=== PATIENT | male | born 1990 | race Hispanic/Latino ===

== ENCOUNTER 2018-12-06 05:56 | Emergency (ER) | payer SELFPAY ==
[2018-12-06 06:19] VITALS: TEMP 98.1
[2018-12-06] MEDS ORDERED: Sodium Chloride 0.9% 1,000 ML IV ONE (06:53)
[2018-12-06 07:10] LABS: BASO # 0.1 K/uL (0.0-0.2); BASO % 0.3 % (0.0-2.0); EOS % 0.3 % (0.0-4.0); HEMOGLOBIN 17.1 g/dL (12.0-18.0); LYMPH # 0.3 K/uL (1.0-4.3); LYMPH % 1.9 % (20.0-40.0); MEAN CELL VOLUME 90.8 fL (80.0-94.0); MEAN CORPUSCULAR HEMOGLOBIN 29.7 pg (27.0-31.0); MEAN CORPUSCULAR HGB CONC 32.7 g/dL (33.0-37.0); MEAN PLATELET VOLUME 9.5 fL (7.2-11.7); MONO # 0.7 K/uL (0.0-0.8); MONO % 4.5 % (0.0-10.0); NEUT # 14.6 K/uL (1.8-7.0); PLATELET COUNT 275 K/uL (130-400); RBC 5.74 Mil/uL (4.40-5.90); RED CELL DISTRIBUTION WIDTH 13.7 % (11.5-14.5); WHITE BLOOD COUNT 15.7 K/uL (4.8-10.8)
[2018-12-06 07:31] LABS: ALB/GLOB RATIO 1.4 (1.0-2.1); ALBUMIN 5.2 g/dL (3.5-5.0); ALT/SGPT 54 U/L (21-72); AST/SGOT 47 U/L (17-59); BLOOD UREA NITROGEN 16 mg/dL (9-20); CALCIUM 9.8 mg/dl (8.6-10.4); GFR NON-AFRICAN AMERICAN > 60; LIPASE 74 U/L (23-300)
--- NOTE | 2018-12-06 07:49 | C.PDOC ---
History Of Present Illness 28 y/o male presents to the ER complaining of nausea, vomiting, and diarrhea which has been present for the past 1 day. Patient states that he had multiple episodes of diarrhea.Denies having fever, chills, CP, SOB, and abdominal pain. Of note, patient states that he has history of brain cyst with craniotomy and seizure disorder. Time Seen by Provider: 12/06/18 07:14 Chief Complaint (Nursing): GI Problem History Per: Patient History/Exam Limitations: no limitations Onset/Duration Of Symptoms: Days Current Symptoms Are (Timing): Still Present Severity: Moderate Quality Of Discomfort: Cramping Recent travel outside of the [place]: [place] Past Medical History Reviewed: Historical Data, Nursing Documentation, Vital Signs Vital Signs: Last Vital Signs Temp 98.1 F 12/06/18 06:01 Pulse 106 H 12/06/18 06:01 Resp 20 12/06/18 06:01 BP 120/87 12/06/18 06:01 Pulse Ox 100 12/06/18 06:01 - Medical History PMH: No Chronic Diseases, Depression, Seizures Other Surgeries: Hx of surgeries Family History: States: No Known Family Hx - Social History Hx Alcohol Use: Yes Hx Substance Use: No Review Of Systems Except As Marked, All Systems Reviewed And Found Negative. Constitutional: Negative for: Fever, Chills Gastrointestinal: Positive for: Nausea, Vomiting, Diarrhea. Negative for: Abdominal Pain Genitourinary: Negative for: Dysuria Physical Exam - Physical Exam Appears: Non-toxic, No Acute Distress Skin: Normal Color, Warm, Dry Head: Atraumatic, Normacephalic Eye(s): bilateral: Normal Inspection Nose: Normal Oral Mucosa: Moist Neck: Supple Chest: Symmetrical Cardiovascular: Rhythm Regular Respiratory: Normal Breath Sounds Gastrointestinal/Abdominal: Normal Exam, Soft Neurological/Psych: Oriented x3, Normal Speech Gait: Steady ED Course And Treatment - Laboratory Results Result Diagrams: 12/06/18 07:05 12/06/18 07:05 Lab Results: Total Bilirubin 1.2 mg/dL (0.2-1.3) 12/06/18 07:05 AST 47 U/L (17-59) 12/06/18 07:05 ALT 54 U/L (21-72) 12/06/18 07:05 Alkaline Phosphatase 86 U/L (38-126) 12/06/18 07:05 Total Protein 8.8 g/dL (6.3-8.3) H 12/06/18 07:05 Albumin 5.2 g/dL (3.5-5.0) H 12/06/18 07:05 Globulin 3.6 gm/dL (2.2-3.9) 12/06/18 07:05 Albumin/Globulin Ratio 1.4 (1.0-2.1) 12/06/18 07:05 Lipase 74 U/L (23-300) 12/06/18 07:05 Lab Interpretation: Abnormal O2 Sat by Pulse Oximetry: 100 (RA) Pulse Ox Interpretation: Normal Progress Note: Patient treated with IVF NSS x 2 liters, zofran and bentyl. On re-evaluation abdomen soft in no distress, tolerating PO Reassessment Condition: Improved Medical Decision Making Medical Decision Making: Plan: --Labs --IV Fluids --Zofran IV --Bentyl IV Disposition Counseled Patient/Family Regarding: Studies Performed, Diagnosis, Need For Followup - Disposition Referrals: [facility] [Outside] [facility] [Outside] Disposition: HOSPITALIZED Disposition Time: 08:30 Condition: IMPROVED Additional Instructions: Drink lots of fluids Return to ED if any increase symptoms Instructions: Viral Gastroenteritis Forms: [facility] ([place]) - POA Present On Arrival: None - Clinical Impression Clinical Impression: Gastroenteritis - 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 - Scribe Statement The provider has reviewed the documentation as recorded by the Kathy Huerta Provider Attestation All medical record entries made by the Sujeyibe were at my direction and personally dictated by me. I have reviewed the chart and agree that the record accurately reflects my personal performance of the history, physical exam, medical decision making, and the department course for this patient. I have also personally directed, reviewed, and agree with the discharge instructions and disposition.
[2018-12-06] MEDS ORDERED: Sodium Chloride 0.9% 1,000 ML ONE (08:01)
[2018-12-06 08:02] LABS: BANDS 1 % (0-2); LYMPHOCYTE 1 % (20-40); MONOCYTE 4 % (0-10); NEUTROPHIL 94 % (50-75); PLATELET ESTIMATE NORMAL (NORMAL); TOTAL CELLS COUNTED 100
[2018-12-06 08:37] VITALS: BP 124/77; PULSE 98; RESP 18
[2018-12-06 17:18] VITALS: O2SAT 100
== END 2018-12-06 08:41 | disposition home or self-care (01) ==
LOC: C.ER 05:56
DX: K52.9 Noninfective gastroenteritis and colitis, unspecified (principal)
CPT/HCPCS: 36415; 80053; 83690; 85025; 96361; 96372; 96374; 99285; J0500; J2405; J7030